=== PATIENT | female | born 1950 ===

== ENCOUNTER 2017-06-19 15:31 | Observation (INO) | payer OTHER ==
[2017-06-19 16:24] VITALS: BMI 36.3
[2017-06-19 17:49] LABS: BASO # 0.02 K/mm3 (0.0-2.0); BASO % 0.4 % (0.0-3.0); EOS # 0.1 (0.0-0.7); EOS % 2.5 % (1.5-5.0); GRAN # 3.3 (1.4-6.5); GRAN % 58.2 % (50.0-68.0); HEMOGLOBIN 14.9 g/dL (12.0-16.0); LYMPH # 1.8 (1.2-3.4); LYMPH % 31.1 % (22.0-35.0); MEAN CELL VOLUME 92.6 fl (80.0-105.0); MEAN CORPUSCULAR HEMOGLOBIN 30.7 pg (25.0-35.0); MEAN CORPUSCULAR HGB CONC 33.2 g/dl (31.0-37.0); MONO # 0.4 (0.1-0.6); MONO % 7.8 % (1.0-6.0); RBC 4.85 10^6/uL (3.5-6.1); RED CELL DISTRIBUTION WIDTH 14.2 % (11.5-14.5); WHITE BLOOD COUNT 5.7 10^3/ul (4.5-11.0)
[2017-06-19 17:52] LABS: ALB/GLOB RATIO 1.4 (1.1-1.8); ALBUMIN 4.3 g/dL (3.0-4.8); ALT/SGPT 35 U/L (7-56); AST/SGOT 33 U/L (14-36); BLOOD UREA NITROGEN 16 mg/dL (7-21); CALCIUM 10.3 mg/dL (8.4-10.5); GFR AFRICAN-AMERICAN > 60; GFR NON-AFRICAN AMERICAN > 60
[2017-06-19 18:04] LABS: B-TYPE NATRIURETIC PEPTIDE 1190 pg/mL (0-450); TROPONIN I < 0.01 ng/mL
[2017-06-19 18:18] LABS: INR 1.62 (0.93-1.08); PARTIAL THROMBOPLASTIN TIME 59.9 Seconds (25.1-36.5); PROTHROMBIN TIME 18.7 SECONDS (9.4-12.5)
--- NOTE | 2017-06-19 18:57 | ED PDOC ---
Arrival/HPI - General Chief Complaint: Chest Pain Time Seen by Provider: 06/19/17 16:30 Historian: Patient - History of Present Illness Narrative History of Present Illness (Text): 06/19/17 20:30 67-year-old female presents today with chest pressure and palpitations. Patient states she feels as if her heart is racing and burning. Patient states occasionally she feels as if the pain radiates into the abdomen. She denies abdominal pain. No nausea or vomiting. Denies dizziness or weakness. Patient denies numbness weakness or tingling in the lower extremities. Patient denies urinary symptoms. Denies back pain. Patient denies shortness of breath. Patient states she was feeling some vague chest pain for a few days but the pain became severe today. pt states she has a hx of afib on xeralto. Symptom Onset: Sudden Symptom Course: Intermittent Quality: Tightness, Burning Severity Level: 4 Past Medical History - Provider Review Nursing Documentation Reviewed: Yes - Travel History Have you recently traveled outside [place] w/in the past 3 mons?: No - Reproductive Menopause: Yes - Cardiac Hx Atrial Fibrillation: Yes Hx Heart Murmur: Yes Hx Hypertension: Yes Hx Pacemaker: No Hx Peripheral Edema: Yes Other/Comment: negative stress test - Neurological Hx Paralysis: No - HEENT Hx HEENT Disorder: Yes (glasses) - Hematological/Oncological Hx Blood Transfusions: No Hx Blood Transfusion Reaction: No - Musculoskeletal/Rheumatological Hx Falls: No - Gastrointestinal Hx Gastrointestinal Disorders: Yes (colon polyps found colonoscopy 10 y/ago) - Psychiatric Hx Emotional Abuse: No Hx Physical Abuse: No Hx Substance Use: No - Surgical History Hx Cardiac Catheterization: Yes (neg) - Anesthesia Hx Anesthesia: Yes Hx Anesthesia Reactions: No Hx Malignant Hyperthermia: No - Suicidal Assessment Feels Threatened In Home Enviroment: No Family/Social History - Physician Review Nursing Documentation Reviewed: Yes Family/Social History: Unknown Family HX Smoking Status: Never Smoked Hx Alcohol Use: No Hx Substance Use: No Allergies/Home Meds Allergies/Adverse Reactions: Allergies No Known Allergies Allergy (Verified 06/19/17 16:28) Home Medications: Home Meds Medication Instructions Recorded Confirmed Aspirin [Aspirin Low Dose] 81 mg PO DAILY 04/22/15 06/19/17 Montelukast [Singulair] 10 mg PO DAILY 04/22/15 06/19/17 Rosuvastatin Calcium [Crestor] 40 mg PO DAILY 04/22/15 06/19/17 Ranexa 1,000 mg PO BID 04/25/15 06/19/17 Review of Systems - Review of Systems Constitutional: absent: Fatigue, Fevers ENT: absent: Sore Throat, Sinus Congestion Respiratory: absent: SOB, Cough Cardiovascular: Chest Pain, Palpitations. absent: Orthopnea, Syncope Gastrointestinal: absent: Abdominal Pain, Nausea, Vomiting Genitourinary Female: absent: Dysuria Musculoskeletal: absent: Arthralgias Skin: absent: Rash, Pruritis Neurological: absent: Headache, Dizziness Psychiatric: absent: Anxiety, Depression, Suicidal Ideation Physical Exam Vital Signs Reviewed: Yes Vital Signs Temp Pulse Resp BP Pulse Ox 06/19/17 18:56 68 18 135/69 99 06/19/17 16:55 66 18 138/74 99 06/19/17 15:52 98.5 F 77 20 146/85 99 Temperature: Afebrile Blood Pressure: Normal Pulse: Regular Respiratory Rate: Normal Appearance: Positive for: Well-Appearing, Non-Toxic, Comfortable Pain Distress: None Mental Status: Positive for: Alert and Oriented X 3 - Systems Exam Head: Present: Atraumatic Mouth: Present: Moist Mucous Membranes Neck: Present: Normal Range of Motion Respiratory/Chest: Present: Clear to Auscultation, Good Air Exchange. No: Respiratory Distress, Accessory Muscle Use Cardiovascular: Present: Regular Rate and Rhythm, Normal S1, S2. No: Murmurs Abdomen: No: Tenderness, Rebound, Guarding Back: Present: Normal Inspection Upper Extremity: Present: Normal ROM Lower Extremity: Present: Normal ROM. No: Edema Neurological: Present: GCS=15, Speech Normal Skin: Present: Warm, Dry, Normal Color. No: Rashes Psychiatric: Present: Alert, Oriented x 3 Medical Decision Making ED Course and Treatment: 06/19/17 20:26 pt with chest pain and palpitations; vitals stable cbc; wnl cmp;wnl trop: 0.01 bnp: 1190 ekg; atrial fibrillation with PVCs at [address] elevations QTC 446 cxr: mild cardiomegaly. asa PO pt reassessment; pt feeling better; vitals remain stable. discussed all results in depth with patient/family. case discussed with Dr. fox; pt of dr. nix; will Admit observational status to Tele for chest pain r/o acs. all aspects of this case were discussed the attending of record. impression; chest pain, elevated BNP Admit observational status to tele - Lab Interpretations Lab Results: 06/19/17 17:10 06/19/17 17:10 Lab Results 06/19/17 17:10: PT 18.7 H, INR 1.62 H, APTT 59.9 H 06/19/17 17:10: WBC 5.7, RBC 4.85, Hgb 14.9, Hct 44.9, MCV 92.6, MCH 30.7, MCHC 33.2, RDW 14.2, Plt Count 237, MPV 10.0, Gran % 58.2, Lymph % (Auto) 31.1, [place] % (Auto) 7.8 H, Eos % (Auto) 2.5, Baso % (Auto) 0.4, Gran # 3.30, Lymph # (Auto ) 1.8, [place] # (Auto) 0.4, Eos # (Auto) 0.1, Baso # (Auto) 0.02 06/19/17 17:10: Sodium 141, Potassium 4.0, Chloride 101, Carbon Dioxide 30, Anion Gap 14, BUN 16, Creatinine 0.9, Est GFR ( Amer) > 60, Est GFR (Non- Af Amer) > 60, Random Glucose 99, Calcium 10.3, Total Bilirubin 0.6, AST 33, ALT 35, Alkaline Phosphatase 96, Lactate Dehydrogenase 472, Total Creatine Kinase 73, Troponin I < 0.01, NT-Pro-B Natriuret Pep 1190 H, Total Protein 7.6, Albumin 4.3, Globulin 3.2, Albumin/Globulin Ratio 1.4 - RAD Interpretation Radiology Orders: 06/19/17 16:30 CHEST PORTABLE [RAD] Stat - Medication Orders Current Medication Orders: Discontinued Medications Aspirin (Aspirin) 325 mg PO STAT STA Stop: 06/19/17 18:54 Disposition/Present on Arrival - Present on Arrival Any Indicators Present on Arrival: No History of DVT/PE: No History of Uncontrolled Diabetes: No Urinary Catheter: No History of Decub. Ulcer: No History Surgical Site Infection Following: None - Disposition Have Diagnosis and Disposition been Completed?: Yes Diagnosis: Chest pain, Elevated brain natriuretic peptide (BNP) level Disposition: HOSPITALIZED Disposition Time: 19:29 Patient Plan: Observation, Telemetry Condition: FAIR Discharge Instructions (ExitCare): Chest Pain (ED) Referrals: Maverick Nix MD [Primary Care Provider] - Follow up with primary Forms: [employer] (Setswana)
--- NOTE | 2017-06-19 21:51 | CP.PCM.HP ---
<Tima Wan - Last Filed: 06/19/17 22:57> History of Present Illness - History of Present Illness History of Present Illness: Denis Wan PGY-1 H&P CC: Chest pain HPI: Patient is a 67 year old female with past medical history significant for HTN, CAD, bronchospastic disease, questionable asthma vs. emphysema, atrial fibrillation rate controlled on anticoagulation with xarelto and sarcoidosis who presents with episodes of chest discomfort and palpitations starting this morning early in the AM. Patient reports the discomfort as being midsternal burning/warmth sensation with radiation toward her right arm and occasionally up into her neck. She reports feeling palpitations associated with chest discomfort. Patient indicates she has had previous episodes similar to her presenting symptoms for the past few years but indicates today her symptoms are worse. Patient reports history of left heart catheritzation with out intervention and 50% stenosis of one of her vessels. Patient denies nausea, vomiting, diaphoresis associated with episodes. Patient denies numbness or focal weakness, abdominal pain, diarrhea, constipation. Associated symptoms of dizziness are appreciated by the patient. Denies LOC, trauma and admits to previous episodes and medical work up for cause of her dizziness. PMH: HTN, CAD, Afib, Sarcoid PSH: Right eye surgery SocHx: Tobacco: Former, limited smoking ETOH: Social ID: Denies ALL: NKDA MEDS: MAR Reviewed PMD: Dr. Georges Cardio: Dr. Snyder Present on Admission - Present on Admission Any Indicators Present on Admission: No Review of Systems - Review of Systems All systems: reviewed and no additional remarkable complaints except (otherwise mentioned in HPI) Past Patient History - Past Social History Smoking Status: Former Smoker Alcohol: Social Drugs: Denies Home Situation {Lives}: With Family - CARDIAC Hx Atrial Fibrillation: Yes Hx Heart Murmur: Yes Hx Hypertension: Yes Hx Pacemaker: No Hx Peripheral Edema: Yes Other/Comment: negative stress test - NEUROLOGICAL Hx Paralysis: No - HEENT Hx HEENT Problems: Yes (glasses) - HEMATOLOGICAL/ONCOLOGICAL Hx Blood Transfusions: No Hx Blood Transfusion Reaction: No - MUSCULOSKELETAL/RHEUMATOLOGICAL Hx Falls: No - GASTROINTESTINAL Hx Gastrointestinal Disorders: Yes (colon polyps found colonoscopy 10 y/ago) - PSYCHIATRIC Hx Emotional Abuse: No Hx Physical Abuse: No Hx Substance Use: No - SURGICAL HISTORY Hx Cardiac Catheterization: Yes (neg) - ANESTHESIA Hx Anesthesia: Yes Hx Anesthesia Reactions: No Hx Malignant Hyperthermia: No Meds Allergies/Adverse Reactions: Allergies Allergy/AdvReac Type Severity Reaction Status Date / Time No Known Allergies Allergy Verified 06/19/17 16:28 Physical Exam - Constitutional Appears: Well, No Acute Distress - Head Exam Head Exam: ATRAUMATIC, NORMAL INSPECTION, NORMOCEPHALIC - Eye Exam Eye Exam: EOMI, PERRL - ENT Exam ENT Exam: Mucous Membranes Moist - Respiratory Exam Respiratory Exam: Clear to Auscultation Bilateral, NORMAL BREATHING PATTERN. absent: Rales, Rhonchi, Wheezes - Cardiovascular Exam Cardiovascular Exam: Irregular Rhythm, +S1, +S2. absent: Clicks, JVD, Systolic Murmur - GI/Abdominal Exam GI & Abdominal Exam: Normal Bowel Sounds, Soft. absent: Distended, Firm, Guarding, Tenderness - Extremities Exam Extremities exam: Positive for: normal capillary refill, normal inspection, pedal pulses present. Negative for: calf tenderness, pedal edema - Back Exam Back exam: NORMAL INSPECTION. absent: CVA tenderness (L), CVA tenderness (R), paraspinal tenderness - Neurological Exam Neurological exam: Alert, CN II-XII Intact, Normal Gait, Oriented x3 - Psychiatric Exam Psychiatric exam: Normal Affect, Normal Mood - Skin Skin Exam: Dry, Intact, Warm Results - Vital Signs Recent Vital Signs: Last Vital Signs Temp 98.5 F 06/19/17 15:52 Pulse 68 06/19/17 18:56 Resp 18 06/19/17 18:56 BP 135/69 06/19/17 18:56 Pulse Ox 99 06/19/17 18:56 - Labs Result Diagrams: 06/19/17 17:10 06/19/17 17:10 Assessment & Plan - Assessment and Plan (Free Text) Assessment: Patient is a 67 year old female with past medical history significant for HTN, CAD, bronchospastic disease, questionable asthma vs. emphysema, atrial fibrillation rate controlled on anticoagulation with xarelto and sarcoidosis who presents by private vehicle complaining of chest discomfort and palpatations. Patient is evaluated in ED and found to be in atrial fibrillation with occasional PVC. Patient admitted to telemetry observation. Plan: 1. Chest Pain r/o ACS - EKG showing atrial fib with PVC's interpreted by myself - Initial troponin negative, f/u serial trop x2 Q6H - Elevated BNP, will order 2D echo - ASA given in ED - Continue home meds - Cardiology consulted, appreciate recs 2. Atrial Fibrillation - non-valvular - Chronic, rate controlled, on anticoagulation with xarelto - Continue xarelto, diltiazem - TSH, Mg, Ph - Consult cardiology, appreciate recs 3. COPD - Asthma vs. emphysema picture - Continue Spiriva, singulair 4. HLD - Atorvastatin 40mg DVT ppx: Xarelto GI ppx: Protonix Case and plan discussed with attending - Date & Time Date: 06/19/17 Time: 22:03 <Newton House - Last Filed: 06/19/17 23:34> Results - Vital Signs Recent Vital Signs: Last Vital Signs Temp 98.5 F 06/19/17 15:52 Pulse 73 06/19/17 22:30 Resp 18 06/19/17 22:30 BP 132/70 06/19/17 22:30 Pulse Ox 97 06/19/17 22:30 - Labs Result Diagrams: 06/19/17 17:10 06/19/17 17:10 Attending/Attestation - Attestation I have personally seen and examined this patient.: Yes I have fully participated in the care of the patient.: Yes I have reviewed all pertinent clinical information: Yes Notes (Text): 06/19/17 23:32 Patient was seen when she was in room # 10 in the ER. Agree with history , physical examination, assessment and plan. My impressions would be as follow: Chest discomfort. Palpitation. Nausea. Atrial fibrillation. PVC's. HTN. Obesity. History of laser surgery of right eye. History asthma. History PNA. HLD. Elevated BNP. Coagulopathy-on Xeralto. History left leg fracture/cast placement. History renal calculus. History of bronchitis. History of sarcoidosis. History of CAD. History of hypokalemia. History of cardiac catheterization x 2. History of colonoscopy/Polypectomy-2. History of endoscopy-Neg. Family History ME-Father of I at age 69 years. Family history prostate cancer-Brother. History seasonal allergies.
--- NOTE | 2017-06-19 22:22 | CARD ---
APPROVED REPORT EKG Measurement Heart [id number] <Conclusion> Atrial fibrillation with premature ventricular or aberrantly conducted complexes Minimal voltage criteria for LVH, may be normal variant Nonspecific ST and T wave abnormality, probably digitalis effect Abnormal ECG
[2017-06-19 22:31] VITALS: O2SAT 97
[2017-06-20 06:26] VITALS: TEMP 97.8
[2017-06-20 06:32] LABS: BASO # 0.01 K/mm3 (0.0-2.0); BASO % 0.2 % (0.0-3.0); EOS # 0.2 (0.0-0.7); EOS % 3.6 % (1.5-5.0); GRAN # 3.13 (1.4-6.5); GRAN % 58.4 % (50.0-68.0); HEMOGLOBIN 14.2 g/dL (12.0-16.0); LYMPH # 1.6 (1.2-3.4); LYMPH % 30.1 % (22.0-35.0); MEAN CELL VOLUME 92.3 fl (80.0-105.0); MEAN CORPUSCULAR HEMOGLOBIN 30.2 pg (25.0-35.0); MEAN CORPUSCULAR HGB CONC 32.7 g/dl (31.0-37.0); MEAN PLATELET VOLUME 10.1 fl (7.0-11.0); MONO # 0.4 (0.1-0.6); MONO % 7.7 % (1.0-6.0); RBC 4.7 10^6/uL (3.5-6.1); RED CELL DISTRIBUTION WIDTH 14.4 % (11.5-14.5); WHITE BLOOD COUNT 5.4 10^3/ul (4.5-11.0)
[2017-06-20 06:46] LABS: ALB/GLOB RATIO 1.3 (1.1-1.8); ALBUMIN 3.7 g/dL (3.0-4.8); ALT/SGPT 33 U/L (7-56); AST/SGOT 32 U/L (14-36); BLOOD UREA NITROGEN 16 mg/dL (7-21); CALCIUM 9.5 mg/dL (8.4-10.5); GFR AFRICAN-AMERICAN > 60; GFR NON-AFRICAN AMERICAN 55; MAGNESIUM 2.2 mg/dL (1.7-2.2)
[2017-06-20 07:00] LABS: TROPONIN I < 0.01 ng/mL
--- NOTE | 2017-06-20 07:11 | CP.PCM.PN ---
Subjective - Date & Time of Evaluation Date of Evaluation: 06/20/17 Time of Evaluation: 07:04 - Subjective Subjective: Progress note for Dr. Lara Patient seen and examined at bedside. No acute events overnight. Patient having difficulty breathing on admission Patient denies fever, chills, abdominal pain, nausea, vomiting. Objective - Vital Signs/Intake and Output Vital Signs (last 24 hours): Temp Pulse Resp BP Pulse Ox 97.8 F 67 20 115/73 97 06/20/17 06:00 06/20/17 06:00 06/20/17 06:00 06/20/17 06:00 06/20/17 06:00 Intake and Output: 06/20/17 06/20/17 06:59 18:59 Intake Total 480 Output Total 1 Balance 479 - Medications Medications: Current Medications Acetaminophen (Tylenol 325mg Tab) 650 mg PO Q6H PRN PRN Reason: Pain, moderate (4-7) Aspirin (Ecotrin) 81 mg PO DAILY POLI Atorvastatin Calcium (Lipitor) 40 mg PO DAILY POLI Calcium Acetate (Phoslo) 1,334 mg PO WM POLI Diltiazem HCl (Cardizem Cd) 120 mg PO DAILY POLI Losartan Potassium (Cozaar) 25 mg PO DAILY POLI Montelukast Sodium (Singulair) 10 mg PO DAILY POLI Pantoprazole Sodium (Protonix Ec Tab) 20 mg PO ACB POLI Rivaroxaban (Xarelto) 15 mg PO BID POLI PRN Reason: Protocol Tiotropium [place] (Spiriva) 18 mcg IH DAILY POLI - Labs Labs: 06/20/17 05:30 06/20/17 05:30 PT 18.7 SECONDS (9.4-12.5) H 06/19/17 17:10 INR 1.62 (0.93-1.08) H 06/19/17 17:10 APTT 59.9 Seconds (25.1-36.5) H 06/19/17 17:10
[2017-06-20] MEDS ORDERED: Pantoprazole 20 mg EC Tab PO SCH (07:30)
--- NOTE | 2017-06-20 08:21 | RAD ---
HISTORY: chest pain COMPARISON: 04/27/2016 FINDINGS: LUNGS: No active pulmonary disease. PLEURA: No significant pleural effusion identified, no pneumothorax apparent. CARDIOVASCULAR: Normal. OSSEOUS STRUCTURES: No significant abnormalities. VISUALIZED UPPER ABDOMEN: Normal. OTHER FINDINGS: None. IMPRESSION: No active disease.
[2017-06-20] MEDS ORDERED: Potassium Chloride 20 mEq ER Tab PO ONE (09:26)
[2017-06-20] MEDS ORDERED: Tiotropium 18 mcg Cap For Inhalation IH SCH (10:00)
[2017-06-20] MEDS ORDERED: diltiaZEM 120 mg/24 Hours CD Cap PO SCH (10:00)
--- NOTE | 2017-06-20 11:43 | CP.PCM.DIS ---
<ChristinaAicha - Last Filed: 06/20/17 15:27> Provider - Provider Date of Admission: 06/19/17 20:24 Attending physician: Jacobo Lara MD Primary care physician: Maverick Georges MD Consults: Dr. Porras Time Spent in preparation of Discharge (in minutes): 35 Hospital Course - Lab Results Lab Results: Most Recent Lab Values WBC 5.4 10^3/ul (4.5-11.0) 06/20/17 05:30 RBC 4.70 10^6/uL (3.5-6.1) 06/20/17 05:30 Hgb 14.2 g/dL (12.0-16.0) 06/20/17 05:30 Hct 43.4 % (36.0-48.0) 06/20/17 05:30 MCV 92.3 fl (80.0-105.0) 06/20/17 05:30 MCH 30.2 pg (25.0-35.0) 06/20/17 05:30 MCHC 32.7 g/dl (31.0-37.0) 06/20/17 05:30 RDW 14.4 % (11.5-14.5) 06/20/17 05:30 Plt Count 227 10^3/uL (120.0-450.0) 06/20/17 05:30 MPV 10.1 fl (7.0-11.0) 06/20/17 05:30 Gran % 58.4 % (50.0-68.0) 06/20/17 05:30 Lymph % (Auto) 30.1 % (22.0-35.0) 06/20/17 05:30 [place] % (Auto) 7.7 % (1.0-6.0) H 06/20/17 05:30 Eos % (Auto) 3.6 % (1.5-5.0) 06/20/17 05:30 Baso % (Auto) 0.2 % (0.0-3.0) 06/20/17 05:30 Gran # 3.13 (1.4-6.5) 06/20/17 05:30 Lymph # (Auto) 1.6 (1.2-3.4) 06/20/17 05:30 [place] # (Auto) 0.4 (0.1-0.6) 06/20/17 05:30 Eos # (Auto) 0.2 (0.0-0.7) 06/20/17 05:30 Baso # (Auto) 0.01 K/mm3 (0.0-2.0) 06/20/17 05:30 PT 18.7 SECONDS (9.4-12.5) H 06/19/17 17:10 INR 1.62 (0.93-1.08) H 06/19/17 17:10 APTT 59.9 Seconds (25.1-36.5) H 06/19/17 17:10 Sodium 139 mmol/L (132-148) 06/20/17 05:30 Potassium 3.7 mmol/L (3.6-5.0) 06/20/17 05:30 Chloride 105 mmol/L (98-107) 06/20/17 05:30 Carbon Dioxide 26 mmol/L (21-33) 06/20/17 05:30 Anion Gap 12 (10-20) 06/20/17 05:30 BUN 16 mg/dL (7-21) 06/20/17 05:30 Creatinine 1.0 mg/dl (0.7-1.2) 06/20/17 05:30 Est GFR ( Amer) > 60 06/20/17 05:30 Est GFR (Non-Af Amer) 55 06/20/17 05:30 Random Glucose 112 mg/dL (70-110) H 06/20/17 05:30 Calcium 9.5 mg/dL (8.4-10.5) 06/20/17 05:30 Phosphorus 4.6 mg/dL (2.5-4.5) H 06/20/17 05:30 Magnesium 2.2 mg/dL (1.7-2.2) 06/20/17 05:30 Total Bilirubin 0.6 mg/dL (0.2-1.3) 06/20/17 05:30 AST 32 U/L (14-36) 06/20/17 05:30 ALT 33 U/L (7-56) 06/20/17 05:30 Alkaline Phosphatase 85 U/L (38-126) 06/20/17 05:30 Lactate Dehydrogenase 472 U/L (333-699) 06/19/17 17:10 Total Creatine Kinase 73 U/L (35-230) 06/19/17 17:10 Troponin I < 0.01 ng/mL 06/20/17 05:30 NT-Pro-B Natriuret Pep 1190 pg/mL (0-450) H 06/19/17 17:10 Total Protein 6.7 g/dL (5.8-8.3) 06/20/17 05:30 Albumin 3.7 g/dL (3.0-4.8) 06/20/17 05:30 Globulin 2.9 gm/dL 06/20/17 05:30 Albumin/Globulin Ratio 1.3 (1.1-1.8) 06/20/17 05:30 TSH 3rd Generation 2.09 mIU/mL (0.46-4.68) 06/20/17 05:30 - Hospital Course Hospital Course: HPI: Patient is a 67 year old female with past medical history significant for HTN, CAD, bronchospastic disease, questionable asthma vs. emphysema, atrial fibrillation rate controlled on anticoagulation with xarelto and sarcoidosis who presents with episodes of chest discomfort and palpitations starting this morning early in the AM. Patient reports the discomfort as being midsternal burning/warmth sensation with radiation toward her right arm and occasionally up into her neck. She reports feeling palpitations associated with chest discomfort. Patient indicates she has had previous episodes similar to her presenting symptoms for the past few years but indicates today her symptoms are worse. Patient reports history of left heart catheritzation with out intervention and 50% stenosis of one of her vessels. Patient denies nausea, vomiting, diaphoresis associated with episodes. Patient denies numbness or focal weakness, abdominal pain, diarrhea, constipation. Associated symptoms of dizziness are appreciated by the patient. Denies LOC, trauma and admits to previous episodes and medical work up for cause of her dizziness. Patient seen by Dr. Porras. Patient had troponins drawn, negative x 3. BNP elevated. Patient to be discharged with instructions to: F/u by Dr. Anderson Calix #[phone] for EPS/ +/- PPM at [facility]. Patient is to continue home medication and return to ED if symptoms worsen - Date & Time of H&P Date of H&P: 06/20/17 Time of H&P: 14:50 Discharge Exam - Head Exam Head Exam: ATRAUMATIC, NORMAL INSPECTION, NORMOCEPHALIC - Eye Exam Eye Exam: EOMI, Normal appearance - ENT Exam ENT Exam: Mucous Membranes Moist - Neck Exam Neck exam: Full Rom - Respiratory Exam Respiratory Exam: Clear to PA & Lateral, NORMAL BREATHING PATTERN. absent: Accessory Muscle Use - Cardiovascular Exam Cardiovascular Exam: Irregular Rhythm, +S1, +S2. absent: Bradycardia, Tachycardia - GI/Abdominal Exam GI & Abdominal Exam: Normal Bowel Sounds, Soft, Unremarkable - Extremities Exam Extremities exam: full ROM, normal inspection - Neurological Exam Neurological exam: Alert, CN II-XII Intact, Oriented x3 - Psychiatric Exam Psychiatric exam: Normal Affect, Normal Mood - Skin Skin Exam: Dry, Normal Color, Warm Discharge Plan - Follow Up Plan Condition: FAIR Disposition: HOME/ ROUTINE Instructions: Chest Pain (ED) Additional Instructions: F/u by Dr. Anderson Calix #[phone] for EPS/ +/- PPM at [facility]. follow up with primary care doctor in one week Referrals: Maverick Georges MD [Primary Care Provider] - <Jacobo Lara - Last Filed: 06/21/17 13:36> Provider - Provider Date of Admission: 06/19/17 19:39 Attending physician: Jacobo Lara MD Primary care physician: Maverick Georges MD Hospital Course - Lab Results Lab Results: Most Recent Lab Values WBC 5.4 10^3/ul (4.5-11.0) 06/20/17 05:30 RBC 4.70 10^6/uL (3.5-6.1) 06/20/17 05:30 Hgb 14.2 g/dL (12.0-16.0) 06/20/17 05:30 Hct 43.4 % (36.0-48.0) 06/20/17 05:30 MCV 92.3 fl (80.0-105.0) 06/20/17 05:30 MCH 30.2 pg (25.0-35.0) 06/20/17 05:30 MCHC 32.7 g/dl (31.0-37.0) 06/20/17 05:30 RDW 14.4 % (11.5-14.5) 06/20/17 05:30 Plt Count 227 10^3/uL (120.0-450.0) 06/20/17 05:30 MPV 10.1 fl (7.0-11.0) 06/20/17 05:30 Gran % 58.4 % (50.0-68.0) 06/20/17 05:30 Lymph % (Auto) 30.1 % (22.0-35.0) 06/20/17 05:30 [place] % (Auto) 7.7 % (1.0-6.0) H 06/20/17 05:30 Eos % (Auto) 3.6 % (1.5-5.0) 06/20/17 05:30 Baso % (Auto) 0.2 % (0.0-3.0) 06/20/17 05:30 Gran # 3.13 (1.4-6.5) 06/20/17 05:30 Lymph # (Auto) 1.6 (1.2-3.4) 06/20/17 05:30 [place] # (Auto) 0.4 (0.1-0.6) 06/20/17 05:30 Eos # (Auto) 0.2 (0.0-0.7) 06/20/17 05:30 Baso # (Auto) 0.01 K/mm3 (0.0-2.0) 06/20/17 05:30 PT 18.7 SECONDS (9.4-12.5) H 06/19/17 17:10 INR 1.62 (0.93-1.08) H 06/19/17 17:10 APTT 59.9 Seconds (25.1-36.5) H 06/19/17 17:10 Sodium 139 mmol/L (132-148) 06/20/17 05:30 Potassium 3.7 mmol/L (3.6-5.0) 06/20/17 05:30 Chloride 105 mmol/L (98-107) 06/20/17 05:30 Carbon Dioxide 26 mmol/L (21-33) 06/20/17 05:30 Anion Gap 12 (10-20) 06/20/17 05:30 BUN 16 mg/dL (7-21) 06/20/17 05:30 Creatinine 1.0 mg/dl (0.7-1.2) 06/20/17 05:30 Est GFR ( Amer) > 60 06/20/17 05:30 Est GFR (Non-Af Amer) 55 06/20/17 05:30 Random Glucose 112 mg/dL (70-110) H 06/20/17 05:30 Calcium 9.5 mg/dL (8.4-10.5) 06/20/17 05:30 Phosphorus 4.6 mg/dL (2.5-4.5) H 06/20/17 05:30 Magnesium 2.2 mg/dL (1.7-2.2) 06/20/17 05:30 Total Bilirubin 0.6 mg/dL (0.2-1.3) 06/20/17 05:30 AST 32 U/L (14-36) 06/20/17 05:30 ALT 33 U/L (7-56) 06/20/17 05:30 Alkaline Phosphatase 85 U/L (38-126) 06/20/17 05:30 Lactate Dehydrogenase 472 U/L (333-699) 06/19/17 17:10 Total Creatine Kinase 73 U/L (35-230) 06/19/17 17:10 Troponin I < 0.01 ng/mL 06/20/17 05:30 NT-Pro-B Natriuret Pep 1190 pg/mL (0-450) H 06/19/17 17:10 Total Protein 6.7 g/dL (5.8-8.3) 06/20/17 05:30 Albumin 3.7 g/dL (3.0-4.8) 06/20/17 05:30 Globulin 2.9 gm/dL 06/20/17 05:30 Albumin/Globulin Ratio 1.3 (1.1-1.8) 06/20/17 05:30 TSH 3rd Generation 2.09 mIU/mL (0.46-4.68) 06/20/17 05:30 Attending/Attestation - Attestation I have personally seen and examined this patient.: Yes I have fully participated in the care of the patient.: Yes I have reviewed all pertinent clinical information, including history, physical exam and plan: Yes Notes (Text): 06/21/17 13:34 Medical record note made by the resident after discussion with my direction and input after the patient was personally seen and examined by me. I have reviewed the chart and agree that the record accurately reflects by personal performance of the history, physical exam, data review, and medical decision- making, in the course for the patient. I have also personally directed the plan of care. 67 yrs old female with PMH of AF on anticoagulation with Xarelto was admitted with atypical chest pain, has chest wall tenderness. EKG was negative for acute ischemic changes.Serial troponins are normal. Patient is pain free.Patient was evaluated by cardiology and out patient follow with her medic technician has been recommended. She will be discharged home and will follow up with her medic technician.
[2017-06-20 11:53] VITALS: BP 122/62; PULSE 51; RESP 18
--- NOTE | 2017-06-20 18:33 | CON ---
DATE: REASON FOR CONSULTATION: Palpitation, chest pain, history of paroxysmal atrial fibrillation, rule out tachy-jorge syndrome. BRIEF CLINICAL HISTORY: This is a 67-year-old female with past medical history significant for hypertension, COPD, ALLERGY TO COMMON ALLERGEN, hyperlipidemia, history of paroxysmal atrial fibrillation on Xarelto, history of COPD, who was complaining of palpitation and feel tired and feels electric current in her heart, so came to the emergency room. Patient has known history of atrial fibrillation, paroxysmal on Xarelto and Cardizem and is being scheduled for EP study at [facility], being seen by Dr. Dez Aviles, yarn bleaching machine operator and nursing unit clerk, Dr. Anderson Knight. Also complained of mild chest pain. PAST MEDICAL HISTORY: Significant for paroxysmal atrial fibrillation, hypertension, COPD, questionable history of asthma, emphysema, history of cardiac catheterization twice in 2009 and most recently last year by Dr. Dez Aviles group at [facility] has told 50% stenosis. As mentioned, hypertension, hyperlipidemia, sarcoidosis, atrial fibrillation. SOCIAL HISTORY: Used to smoke socially, now quit. Socially drinks. Denies the history of substance abuse. FAMILY HISTORY: Noncontributory. PAST SURGICAL HISTORY: Significant for right eye surgery. ALLERGIES: NO KNOWN DRUG ALLERGY. CURRENT MEDICATIONS: Patient is taking at home Singulair 10 mg daily, losartan 25 mg daily, aspirin 81 mg daily, Cardizem 120 mg daily, Spiriva 18 mcg daily, Crestor 40, Ranexa 1 g twice. REVIEW OF SYSTEMS: As per HPI. PHYSICAL EXAMINATION: As follows: VITAL SIGNS: Temperature afebrile, heart rate 67, blood pressure 115/73. Height of the patient is 5 feet 3 inches, weight of the patient is 211 pounds, body mass index 37.4 kg/m2. HEENT: PERRLA. Extraocular muscles intact. NECK: Supple. No carotid bruits or thyromegaly. CHEST: Clear to auscultation. HEART: S1 and S2 regular. ABDOMEN: Soft. EXTREMITIES: Clubbing and cyanosis negative. LABORATORY DATA: 1. EKG shows multiple sinus with APCs, PVCs. 2. EKG show AFib flutter with variable block. 3. EKG shows 2.5 second pause in telemetry. IMPRESSION: Sick sinus syndrome, tachy-jorge syndrome, paroxysmal atrial fibrillation, history of cardiac catheterization twice in 2009 and recently last year [facility] found to be 50% stenosis, chronic obstructive pulmonary disease, questionable history of emphysema, hypertension, hyperlipidemia, ALLERGY TO COMMON ALLERGEN. RECOMMENDATION: We will resume back Cardizem. Continue Xarelto. Left the message to Dr. Dez Aviles at [phone], who is the yarn bleaching machine operator and also left the message to Dr. Anderson Knight, telephone number [phone] who is the nursing unit clerk and scheduled for EP ablation and waiting for the response. If they are willing to take the patient, we will discharge the patient and follow up with them. Otherwise, we can consider pacemaker and beta-clementina. Pacemaker and give the high-dose of beta-clementina to remain in normal sinus and make the pacemaker dependent. Further recommendation depend upon the response from the Dez Aviles group and Dr. Anderson Knight. We will follow with you. Thank you, Dr. Lara, for providing us the opportunity in taking care of the patient, Kathrine Ace. Jacobo Porras MD
--- NOTE | 2017-06-20 19:01 | CARD ---
APPROVED REPORT EXAM: Two-dimensional and M-mode echocardiogram with Doppler and color Doppler. INDICATION ELEVATED BNP/HX OF CAD/EVALUATE WALL MOTION 2D DIMENSIONS Left Atrium (2D)4.7 (1.6-4.0cm)IVSd1.2 (0.7-1.1cm) LVDd3.8 (3.9-5.9cm)LVOT Diameter2.0 (1.8-2.4cm) PWd1.3 (0.7-1.1cm)LVDs2.5 (2.5-4.0cm) FS (%) 33.5 %LVEF (%)63.0 (>50%) M-Mode DIMENSIONS Aortic Root2.90 (2.2-3.7cm)Aortic Cusp Exc.1.20 (1.5-2.0cm) Aortic Valve AoV Peak Egzbtwei772.0cm/sAoV VTI62.8cmAO Peak GR.33mmHg LVOT Peak Vqbcxylh775.0cm/sLVOT VTI31.80cmAO Mean GR.17mmHg KAYLIN (VMAX)1.41ye5TTJ (VTI)1.53cm2 Mitral Valve MV E Rvbazjar84.2cm/sMV A Lcknnigw09.8cm/sE/A ratio1.1 TDI Lateral E' Peak V7.70cm/sMedial E' Peak V4.78cm/sE/Lateral E'9.4 E/Medial E'15.1 Pulmonary Valve PV Peak Kmlqlyel44.4cm/sPV Peak Grad.2mmHg Tricuspid Valve TR Peak Aprxzkqz097ge/sRAP YRLPAQQF17byPfJN Peak Gr.35mmHg [id number] LEFT VENTRICLE The left ventricle is normal size. There is mild concentric left ventricular hypertrophy. The left ventricular function is normal. The left ventricular ejection fraction is within the normal range. There is normal LV segmental wall motion. Transmitral Doppler flow pattern is Grade I-abnormal relaxation pattern. RIGHT VENTRICLE The right ventricle is normal size. There is normal right ventricular wall thickness. The right ventricular systolic function is normal. ATRIA The left atrium is mildly dilated. The right atrium size is normal. AORTIC VALVE The aortic valve is mildly sclerotic. There is mild valvular aortic stenosis. MITRAL VALVE The mitral valve is mildly thickened. Mitral regurgitation is trace. TRICUSPID VALVE There is mild tricuspid regurgitation. There is mild to moderate pulmonary hypertension. GREAT VESSELS The aortic root is normal in size. The IVC is normal in size and collapses >50% with inspiration. PERICARDIAL EFFUSION There is no pericardial effusion. <Conclusion> The left ventricle is normal size. There is mild concentric left ventricular hypertrophy. The left ventricular function is normal. The left ventricular ejection fraction is within the normal range. There is normal LV segmental wall motion. Transmitral Doppler flow pattern is Grade I-abnormal relaxation pattern. There is mild valvular aortic stenosis. There is mild tricuspid regurgitation. There is mild to moderate pulmonary hypertension.
--- NOTE | 2017-06-20 19:45 | CARD ---
APPROVED REPORT EKG Measurement Heart [id number] <Conclusion> Sinus bradycardia with frequent interpolated premature ventricular complexes Moderate voltage criteria for LVH, may be normal variant Nonspecific T wave abnormality Prolonged QT Abnormal ECG
--- NOTE | 2017-06-20 21:16 | CARD ---
APPROVED REPORT EKG Measurement Heart [id number] <Conclusion> Sinus bradycardia with 1st degree AV block with frequent interpolated premature ventricular complexes and fusion complexes Low voltage QRS Possible Lateral infarct, age undetermined ST & T wave abnormality, consider inferior ischemia Abnormal ECG
== END 2017-06-20 18:16 | disposition home or self-care (01) ==
LOC: ED 15:31 → ERH 19:39 → UNDOADMOB 20:24 → ERH 20:24 → 2RNO 23:20 → UNDODISOB 06-20 18:16
PROVIDERS: ADMIT Internal Medicine; ATTEND Internal Medicine
DX: R07.89 Other chest pain (principal); I48.0 Paroxysmal atrial fibrillation; Z79.01 Long term (current) use of anticoagulants; I25.10 Atherosclerotic heart disease of native coronary artery without angina pectoris; I10 Essential (primary) hypertension; J44.9 Chronic obstructive pulmonary disease, unspecified; D86.9 Sarcoidosis, unspecified; E78.5 Hyperlipidemia, unspecified; E66.9 Obesity, unspecified; Z68.37 Body mass index [BMI] 37.0-37.9, adult; Z86.010 Personal history of colon polyps; Z79.82 Long term (current) use of aspirin; Z87.891 Personal history of nicotine dependence
CPT/HCPCS: 36415; 71045; 80053; 82550; 83615; 83735; 83880; 84100; 84443; 84484; 85025; 85610; 85730; 93005; 93306; 99285; G0378